=== PATIENT | female | born 1960 | race African-American/Black ===

== ENCOUNTER → 2018-11-15 | Outpatient (CLI) | payer MEDICAID ==
--- NOTE | 2018-11-15 16:35 | RAD ---
US PELVIS W/TV History: Postmenopausal bleeding. Comparison: None. Technique: Grayscale and color Doppler imaging of the pelvis was performed using transabdominal and transvaginal technique. Findings: The uterus measures 6.2 x 4.2 x 2.3 cm in length. Left myometrial fibroid abutting the endometrial canal measures 2.2 x 2.5 x 1.67 m.. The endometrial stripe measures 3 mm. Trace fluid within the endometrial canal. Bilateral ovaries not well seen due to positioning and overlying bowel gas. IMPRESSION: 1. Left myometrial fibroid abutting the endometrial canal. 2. Nonspecific trace fluid within the endometrial canal. Electronically signed by: George Vu DO (11/15/2018 4:33 PM) [id number]
== END | disposition home or self-care (01) ==
LOC: US 12:25
PROVIDERS: ATTEND Obstetrics & Gynecology
DX: D25.9 Leiomyoma of uterus, unspecified (principal); N95.0 Postmenopausal bleeding
CPT/HCPCS: 76830; 76856

== ENCOUNTER → 2020-01-30 | Outpatient (CLI) | payer MEDICAID ==
--- NOTE | 2020-01-30 17:12 | RAD ---
Three-view cervical spine radiographs 01/30/2020 Clinical posterior: Neck pain. AP, 2 AP odontoid and lateral digital radiographs of the cervical spine were obtained. There is straightening of the normal cervical lordosis. Degenerative changes consisting of varying degrees of disc space narrowing, vertebral endplate sclerosis and mild to moderate anterior and posterior vertebral body osteophyte formation is seen involving the mid and lower cervical disc spaces. Degenerative changes are seen involving the uncovertebral and facet joints throughout the cervical disc spaces. No fracture or subluxation of the cervical vertebrae is seen. No prevertebral soft tissue swelling is noted. IMPRESSION: Degenerative changes are seen involving the cervical spine as discussed above. No acute osseous abnormality is seen. Electronically signed by: Shree Lopez MD (01/30/2020 5:09 PM) [id number]
--- NOTE | 2020-01-30 17:20 | RAD ---
Three-view lumbar spine radiographs 01/30/2020 CLINICAL HISTORY: Low back pain. AP and two lateral digital radiographs of the lumbar spine were obtained. There is diffuse osteopenia of the visualized bony structures. Minimal S-shaped curvature of the thoracolumbar spine is seen. Degenerative changes are seen involving the lower thoracic and throughout the lumbar disc spaces consisting of varying degrees of disc space narrowing, vertebral endplate sclerosis and minimal to mild anterior and posterior vertebral body osteophyte formation. Degenerative changes are seen involving the facet joints of the mid and lower lumbar disc spaces. Atherosclerotic calcification of the abdominal aorta and its branches is noted. IMPRESSION: Degenerative changes are seen involving lumbar spine as discussed above. No acute osseous abnormality is seen. Electronically signed by: Shree Lopez MD (01/30/2020 5:17 PM) [id number]
== END ==
LOC: RAD 15:25
PROVIDERS: ATTEND Family Medicine
DX: M47.812 Spondylosis without myelopathy or radiculopathy, cervical region (principal); M47.815 Spondylosis without myelopathy or radiculopathy, thoracolumbar region; M43.8X5 Other specified deforming dorsopathies, thoracolumbar region; M25.78 Osteophyte, vertebrae; I70.0 Atherosclerosis of aorta
CPT/HCPCS: 72040; 72100